=== PATIENT | female | born 1965 | race African-American/Black ===

== ENCOUNTER → 2016-10-05 | Outpatient (CLI) | payer MEDICARE, OTHER ==
[~2016-10-05] MED LIST: ACETAMINOPHEN PO; ALBUTEROL17 G1 IH; AMLODIPINE BES2.5 MG PO; ASPIRIN325 M1 PO; COLACE PO; COREG3.125 MG PO; DAKIN'S3840 ML TOP; DAKIN'S473 M1 MC; DURAGESIC TOP; FAMOTIDINE PO; FLEXERIL10 M1 PO; FLEXERIL10 MG PO; HYDROCHLOROTHIA25 MG PO; LASIX PO; LISINOPRIL-HCTZ1 T15 PO; LORTAB 10-5001 EACH PO; LORTAB 10/500 T1 TAB PO; LORTAB 5/500 TA1 TA1 PO; MELOXICAM15 MG PO; METHADONE PO; MILK OF MAGNESIA PO; MIRALAX255 GM PO; NAPROSYN500 MG PO; NEXIUM PO; NORCO 10-325 TA1 TAB PO; NORCO 10/325 TA1 TAB PO; ROBITUSSIN15 MG/5 ML PO; SANTYL; SANTYL15 G1 TP; TEMAZEPAM PO; TYLENOL325 M1 PO; ULTRAM PO; VICODIN 5/1 TAB 5/50 PO; VICODIN 5/500 T1 TAB PO; VICODIN PO; VOLTAREN50 MG PO; ZANTAC PO; ZESTORETIC1 TAB PO; ZITHROMAX1 G/PKT PO
--- NOTE | ~2016-10-05 | CT57 ---
[facility] A Service of [facility] RADIOLOGY TEXT RESULTS PATIENT: CAMI HALEY LOCATION: [facility] : [birth year] UNIT #: [id number] AGE: [address]: Elis Joseph SEX: F ORDER DR: [id number] [facility] [address] [place], [place] [address] [id number] O MR#: [id number] Acc #: [id number] NAME: CAMI HALEY : 1965 SEX: F STUDY DATE/TIME: 10/05/2016 15:35 UNIT: [facility] ROOM: STUDY DESCRIPTION: CT Chest Wo Cont Attending Physician: Elis Joseph A.P.R.N. Ordering Physician: Elis Joseph A.P.R.N. Primary Care Physician: Devyn Oro M.D. MEDICAL IMAGING REPORT This report is preliminary unless electronic signature is present EXAM CT of the chest without contrast INDICATIONS 51-year-old female with history of lung nodule followup and shortness of breath for [address] chest was performed without contrast. Coronal and sagittal reformatted images were obtained. Compared with CT of the abdomen and pelvis from 10/21/[address] from 01/12/2013. This CT exam was performed with one or more of the following radiation dose reduction techniques: Automatic exposure control, adjustment of mA and/or kV according to patient size, and iterative reconstruction. FINDINGS Emphysema. Stable micronodule in the left upper lobe, image 26, since 2012. Stable micronodule left upper lobe, image 51, since 2012. Stable micronodule in the lingula since 2012. Stable scattered nodules in the left lower lobe. Stable scattered, tiny nodules in the right lung. No new nodules since the study from 2012. No suspicious nodule. Cardiomegaly. No pleural effusion or suspicious lymphadenopathy. Limited imaging of the upper abdomen is unremarkable. Bone windows are unremarkable. IMPRESSION Emphysema with stable scattered, bilateral pulmonary nodules dating back to 2012. No new nodules. Dictated by... [facility] A Service of [facility] RADIOLOGY TEXT RESULTS PATIENT: CAMI HALEY LOCATION: [facility] : 65 UNIT #: [id number] AGE: [address]: Elis Joseph SEX: F ORDER DR: Meng Novoa M.D. THIS IS AN ELECTRONICALLY VERIFIED REPORT Meng Novoa M.D. at 10/06/2016 4:40 PM ARS/carol TD: 10/05/2016 16:57 JOB #: [id number] MEDICAL IMAGING REPORT COPY
== END | disposition home or self-care (01) ==
LOC: CRC 13:57
DX: R06.00 Dyspnea, unspecified (principal); R09.02 Hypoxemia; J96.11 Chronic respiratory failure with hypoxia; F10.10 Alcohol abuse, uncomplicated; R91.1 Solitary pulmonary nodule; Z72.0 Tobacco use; J43.9 Emphysema, unspecified; R91.8 Other nonspecific abnormal finding of lung field
CPT/HCPCS: 71250; 94060; 94726; 94729

== ENCOUNTER → 2016-11-01 | Outpatient (CLI) | payer MEDICARE, OTHER ==
--- NOTE | ~2016-11-01 | PFT ---
[id number] [facility] [address] [place], [place] [address] [id number] O MR#: [id number] NAME: CAMI HALEY ROOM: SEX: F STUDY DATE/TIME: 11/18/2016 : 1965 AGE: 51 STUDY DESCRIPTION: Attending Physician: Elis Joseph A.P.R.N. Referring Physician: Elis Joseph A.P.R.N. Primary Care Physician: Elis Joseph A.P.R.N. PULMONARY DIAGNOSTIC REPORT EXAM Pulmonary Function Study FINDINGS Patient meets ATS criteria for acceptability and repeatability. Difficulty with DLCO maneuver. Please interpret with care. Spirometry shows moderate obstruction. There is very good bronchodilator response. Lung volumes show mild ventilatory restriction. Diffusion capacity is severely decreased. There is impaired airway mixing, overall this is consistent with a moderate COPD. Dictated by... Jeff Hoff TD: 11/18/2016 20:49 JOB #: [id number] PULMONARY DIAGNOSTIC REPORT Page 1 of 1
--- NOTE | ~2016-11-01 | HM ---
Unit #: [id number] #: [id number] Patient: CAMI HALEY [id number] [address] [address] [id number] O MR#: [id number] NAME: CAMI HALEY : 1965 SEX: F STUDY DATE/TIME: 11/01/2016 UNIT: [facility] ROOM: STUDY DESCRIPTION: Holter monitor Attending Physician: Elis Joseph A.P.R.N. Referring Physician: Elis Joseph A.P.R.N. Primary Care Physician: Elis Joseph A.P.R.N. CARDIOLOGY REPORT EXAM Holter monitor. DATE APPLIED 11/01/2016 DATE SCANNED 11/02/2016 ORDERED BY Elis Joseph APRN READ BY Dr. J Carlos Cueva INDICATION Tachycardia FINDINGS 1. The underlying rhythm is normal sinus. Slowest recorded heart rate is 48 beats per minute and maximal recorded heart rate is 126 beats per minute. 2. Very rare isolated premature ventricular contractions are noted with a total of 205 beats in 24 hours. PVCs arise from at least two different foci. No couplets or ventricular tachycardia were recorded. 3. There were 91 isolated premature atrial contractions. No couplets or supraventricular tachycardia are documented. Computer erroneously recorded sinus tachycardia as SVT. 4. There is no AV bianca block, sinus arrest or sinus pause. 5. The patient did not maintain a symptom or an activity diary. Dictated by... Jeff Barbosa TD: 11/04/2016 06:20 JOB #: [id number] Unit #: [id number] #: [id number] Patient: CAMI HALEY CARDIOLOGY REPORT Page 1 of 1 X J Carlos Cueva MD HOLTER MONITOR REPORT
== END | disposition home or self-care (01) ==
LOC: CEKG 10:59
DX: R00.0 Tachycardia, unspecified (principal)
CPT/HCPCS: 93225; 93226